=== PATIENT | female | born 1960 | race Caucasian/White ===

== ENCOUNTER 2024-01-30 22:56 | Emergency (ER) | payer BC ==
[~2024-01-30] VITALS: Ht 162.6 cm; Wt 83.6 kg
[2024-01-30 23:26] VITALS: BP 135/72; PULSE 88; TEMP 98.3
== END 2024-01-31 00:08 | disposition home or self-care (01) ==
LOC: COL.ER 22:56
DX: S00.411A Abrasion of right ear, initial encounter (principal); X58.XXXA Exposure to other specified factors, initial encounter

== ENCOUNTER 2024-06-25 12:41 | Inpatient (IN) | payer BC ==
[2024-06-25] VITALS (7 sets, daily range): BP systolic 103–136; BP diastolic 68–72; PULSE 86–120; TEMP 98.5–102.9
[~2024-06-25] VITALS: Ht 162.6 cm; Wt 84.3 kg
[2024-06-25] MEDS ORDERED: Ondansetron 4 MG/2 ML VIAL IV PRN (15:15)
[2024-06-25] MEDS ORDERED: Polyethylene Glycol 3350 17 GM PDS PO PRN (15:15)
[2024-06-25] MEDS ORDERED: Docusate Sodium 100 MG CAP PO PRN (15:15)
[2024-06-25] MEDS ORDERED: LR 1,000 ML IV SCH (15:15)
[2024-06-25] MEDS ORDERED: Acetaminophen 325 MG TAB PO PRN (15:15)
--- NOTE | 2024-06-25 16:48 | NUR ---
PATIENT ARRIVED TO FLOOR AT 1420 FROM [facility]. PATIENT ARRIVED W/ FEVER OF 102.9 CONTACTED PROVIDER AND RECEIVED ORDERS FOR TYLENOL. RECHECK OF TEMP. AT 1600 WAS 100.4. PATIENT STATES PAIN IN CENTER OF ABD, PAIN MEDS GIVEN ORDERED. PATIENT ADMISSION, INTAKE AND MED REC COMPLETED. PATIENT IS RESTING IN BED. CALL LIGHT IN REACH
[2024-06-25] MEDS ORDERED: PRILOSEC10 MG PO (16:54)
--- NOTE | 2024-06-25 19:36 | NUR ---
PT REPORTS ABD PAIN 10/10, NORCO GIVEN AT THIS TIME, 1 TAB PO. PT HAS IVF INFUSING TO LT HAND WITHOUT REDNESS OR SWELLING. HAS WEINSTEIN TO BSD WITH CLOUDY YELLOW URINE. SPOUSE AT BEDSIDE. PT IS ALERT AND ORIENTED X4.
--- NOTE | 2024-06-25 23:36 | NUR ---
PT HAVING 8/10 PAIN TO ABD. NORCO 1 TAB GIVEN NOW.
[2024-06-26] VITALS (10 sets, daily range): BP systolic 96–136; BP diastolic 56–63; PULSE 80–96; TEMP 98–99.1
--- NOTE | 2024-06-26 00:33 | NUR ---
REPEATED NORCO FOR PAIN TO ABD. NPO FOR POSSIBLE DRAIN PLACEMENT IN AM.
--- NOTE | 2024-06-26 05:45 | NUR ---
PT TAKES SCHEDULED AM MED WITH SIP OF WATER. DENIES NEED FOR PAIN MED AT THIS TIME.
[2024-06-26 06:30] LABS: BASO # 0.1 K/mm3 (0.0-0.2); BASO % 0.3 % (0.0-2.0); EOS # 0.1 K/mm3 (0.0-0.7); EOS % 0.3 % (0.0-4.0); GRAN # 15.1 K/mm3 (1.4-6.5); GRAN % 85.4 % (42.2-75.2); HEMOGLOBIN 11.1 g/dl (12.5-16.0); LYMPH # 1.2 K/mm3 (1.2-3.4); LYMPH % 6.7 % (20.0-51.0); MEAN CELL VOLUME 87 fl (80.0-100.0); MEAN CORPUSCULAR HEMOGLOBIN 29 pg (27-31); MEAN CORPUSCULAR HGB CONC 34 g/dl (33.0-37.0); MEAN PLATELET VOLUME 9.6 fl (7.4-10.4); MONO # 1.2 K/mm3 (0.1-0.6); MONO % 6.7 % (1.7-9.3); PLATELET COUNT 346 K/mm3 (130-400); RED BLOOD COUNT 3.78 M/mm3 (4.10-5.30)
[2024-06-26 06:33] LABS: HEMATOCRIT 32.7 % (37.0-47.0)
[2024-06-26 06:40] LABS: CALCIUM 8.8 mg/dL (8.4-10.2); CREATININE, serum 0.69 mg/dL (0.57-1.11); POTASSIUM 3.8 mEq/L (3.5-4.5)
--- NOTE | 2024-06-26 07:05 | NUR ---
medicated with [place] 5/325mg for abd pain
--- NOTE | 2024-06-26 08:00 | NUR ---
PATIENT IS A&O. VSS. REPORTS PAIN 3/10 AFTER GETTING PAIN MEDS FROM PEER COUNSELOR DURING SHIFT REPORT. ABD IS ROUND, SOFT AND WITH SOME BOWL SOUNDS. PATIENT REPORTS PASSING SOME GAS. NPO FOR POSSIBLE ABSCESS DRAIN PLACEMENT TODAY. CONSENT OBTAINED AND ON CHART. IV FLUIDS INFUSING VIA PUMP INTO LEFT HAND. WEINSTEIN TO DD. HEAD TO TOE ASSESSMENT COMPLETE. NO OTHER NEEDS AT THIS TIME. CALL LIGHT IN REACH.
[2024-06-26] MEDS ORDERED: Iohexol 300 - 100 ML VIAL IV ONE (09:27)
[2024-06-26] MEDS ORDERED: Polyethylene Glycol 3350 17 GM PDS PO SCH (10:36)
[2024-06-26] MEDS ORDERED: Docusate Sodium 100 MG CAP PO SCH (10:36)
--- NOTE | 2024-06-26 13:50 | NUR ---
concession worker met with pt to discuss intake information. She reports to live with her , Chuck [phone] in [place]. She sees Dr. Bsailio for PCP needs and obtains medications from [email or web address] with no difficulties. She is independent with ADLS and uses no DME. She does not have a DPOA-HC. PT/OT informed SW they signed off on pt. Discharge Plan: home
--- NOTE | 2024-06-26 14:20 | NUR ---
D: Prop Attendant stopped by room on rounds. A: Pt was resting and content. Pt has no needs right now. Pt appreciated the visit. P: Prop Attendant informed pt that if she needed anything from the business analysis specialist area to let her nurse know. Prop Attendant will follow up as needed.
--- NOTE | 2024-06-26 20:40 | NUR ---
PT A&O X4 LAYING IN BED. VSS. PT RATING ABD & BACK PAIN 06/21, GAVE PRN NORCO PER JAN. WEINSTEIN TO DD WITH YELLOW OUTPUT. LR AT 100ML/HR INFUSING TO LEFT HAND. PT DENYING FURTHER NEEDS. CALL LIGHT IN REACH
[2024-06-27] VITALS (13 sets, daily range): BP systolic 92–113; BP diastolic 52–70; PULSE 80–92; TEMP 97.5–99.7
--- NOTE | 2024-06-27 06:09 | NUR ---
PT RESTING IN BED WITH UNLABORED RESP. PAIN CONTROLLED THROUGHOUT THE NIGHT WITH PRN NORCO PER JAN. PT DENYING OTHER NEEDS. CALL LIGHT IN REACH
[2024-06-27 06:46] LABS: BASO % 0.4 % (0.0-2.0); EOS # 0.1 K/mm3 (0.0-0.7); EOS % 1.1 % (0.0-4.0); GRAN # 9.2 K/mm3 (1.4-6.5); GRAN % 81.1 % (42.2-75.2); HEMOGLOBIN 10.7 g/dl (12.5-16.0); LYMPH % 9.1 % (20.0-51.0); MEAN CELL VOLUME 88 fl (80.0-100.0); MEAN CORPUSCULAR HEMOGLOBIN 30 pg (27-31); MEAN CORPUSCULAR HGB CONC 34 g/dl (33.0-37.0); MEAN PLATELET VOLUME 10.1 fl (7.4-10.4); MONO # 0.9 K/mm3 (0.1-0.6); MONO % 7.8 % (1.7-9.3); PLATELET COUNT 265 K/mm3 (130-400); RED BLOOD COUNT 3.61 M/mm3 (4.10-5.30); REDCELL DISTRIBUTION WIDTH-CV 11.9 % (11.5-14.5)
[2024-06-27 06:48] LABS: HEMATOCRIT 31.9 % (37.0-47.0)
[2024-06-27 06:54] LABS: CALCIUM 8.5 mg/dL (8.4-10.2); CREATININE, serum 0.64 mg/dL (0.57-1.11); POTASSIUM 3.5 mEq/L (3.5-4.5)
--- NOTE | 2024-06-27 10:54 | NUR ---
SHIFT ASSESSMENT COMPLETE. PATIENT AWAKE IN BED EATING BREAKFAST. PATIENT TOLERATING FULL LIQUIDS THIS AM. REPORTS PAIN 9/10 DURNING ASSESSMENT PAIN MEDS GIVEN AND PATIENT RECHECKED AN HOUR LATER STATING PAIN THEN AT 2/10. ALL MORNING MEDS GIVEN ORDERED. PATIENT HAS NO OTHER REQUEST AT THIS TIME. CALL LIGHT IN REACH
[2024-06-27] MEDS ORDERED: LR 1,000 ML IV SCH (11:30)
--- NOTE | 2024-06-27 20:45 | NUR ---
PT A&O X4 LAYING IN BED. VSS. REPORTING PAIN 07/22 TO BACK & 3/10 TO ABD, TO EARLY FOR PRN NORCO, GAVE PRN TYLENOL PER MAR. DENYING N/V. WEINSTEIN TO DD WITH CLEAR YELLOW OUTPUT. LR AT 100MLS/HR INFUSING TO LEFT HAND. PT DENYING FURTHER NEEDS. CALL LIGHT IN REACH
--- NOTE | 2024-06-27 21:55 | NUR ---
PT REQUESTING PRN PAIN MED FOR BACK PAIN 06/21, GAVE PRN NORCO PER JAN. PT REPORTS SHE WOULD NORMALLY USE A HEAT PACK FOR PAIN BUT SHE DOESNT HAVE ONE HERE, OFFERED PT A WARM BLANKET & SHE DENIED. CALL LIGHT IN REACH
[2024-06-28] VITALS (11 sets, daily range): BP systolic 109–131; BP diastolic 72–81; PULSE 76–94; TEMP 97.7–99.4
[2024-06-28 07:18] LABS: BASO % 0.4 % (0.0-2.0); EOS # 0.2 K/mm3 (0.0-0.7); EOS % 2.3 % (0.0-4.0); GRAN # 7.9 K/mm3 (1.4-6.5); GRAN % 79.3 % (42.2-75.2); HEMOGLOBIN 10.3 g/dl (12.5-16.0); LYMPH % 9.8 % (20.0-51.0); MEAN CELL VOLUME 86 fl (80.0-100.0); MEAN CORPUSCULAR HEMOGLOBIN 29 pg (27-31); MEAN CORPUSCULAR HGB CONC 34 g/dl (33.0-37.0); MEAN PLATELET VOLUME 9.1 fl (7.4-10.4); MONO # 0.8 K/mm3 (0.1-0.6); MONO % 7.7 % (1.7-9.3); PLATELET COUNT 325 K/mm3 (130-400); RED BLOOD COUNT 3.52 M/mm3 (4.10-5.30); REDCELL DISTRIBUTION WIDTH-CV 11.8 % (11.5-14.5)
[2024-06-28 07:21] LABS: HEMATOCRIT 30.3 % (37.0-47.0)
--- NOTE | 2024-06-28 07:27 | NUR ---
SHIFT ASSESSMENT COMPLETE. VSS. PATIENT AWAKE IN BED TALKING W/DAUGHTER ON THE PHONE. PATIENT COMPLAINING OF PAIN 10/10 PAIN MEDS GIVEN ORDERED. ALL MORNING MEDS GIVEN ORDERED. WEINSTEIN IN PLACE CLEAR YELLOW URINE DRAINING. PATIENT HAS NO OTHER REQUEST AT THIS TIME. CALL LIGHT IN PLACE.
[2024-06-28 07:31] LABS: CALCIUM 8.5 mg/dL (8.4-10.2); CREATININE, serum 0.63 mg/dL (0.57-1.11); POTASSIUM 3.3 mEq/L (3.5-4.5)
--- NOTE | 2024-06-28 11:29 | NUR ---
WEINSTEIN CATHETER REMOVED 9CC REMOVED FROM BALLOON AND 800ML OUT OF URINE. PATIENT TOLERATGED WELL. PATIENT ALSO URINATED RIGHT AFTER.
--- NOTE | 2024-06-28 20:00 | NUR ---
PT A&O X4 LAYING IN BED. DENIES N/V. REPORTS PAIN 08/21 TO BACK AND ABD, GAVE PRN NORCO PER MAR. PT NOW UP AMBULATING HALLS INDEPENDENTLY WITH . DENYING FURTHER NEEDS.
--- NOTE | 2024-06-28 21:15 | NUR ---
PT RESTING IN BED. REPORTS PAIN IMPROVEMENT FROM PRN NORCO GIVEN EARLIER. IV ABX INFUSING TO LEFT HAND VIA PUMP. PT DENYING OTHER NEEDS. CALL LIGHT IN REACH
[2024-06-29] VITALS (13 sets, daily range): BP systolic 109–137; BP diastolic 63–84; PULSE 75–89; TEMP 98.1–99.8
--- NOTE | 2024-06-29 06:14 | NUR ---
PT RESTING IN BED WITH UNLABORED RESP. PAIN CONTROLLED THROUGHOUT NIGHT WITH PRN NORCO PER JAN. PT DENYING NEEDS AT THIS TIME. CALL LIGHT IN REACH
--- NOTE | 2024-06-29 08:06 | NUR ---
PT RESTING IN BED. ORDERED BREAKFAST. AM MEDS GIVEN ORDERED. PRN PO PAIN MEDS FOR PAIN CONTROLL. PT CURRENTLY RATING PAIN AT 8/10. PT INDEPENDENT IN ROOM AND HALLS.
--- NOTE | 2024-06-29 20:26 | NUR ---
SHIFT ASSESSMENT COMPLETE. VSS. PATIENT AWAKE WATCHING TV, TEARFUL DUE TO PAIN 10/10. PAIN MEDS GIVEN ALONG WITH NIGHT MEDS ORDERED. PATIENT STATES NO OTHER NEEDS AT THIS TIME. CALL LIGHT IN REACH
[2024-06-30] VITALS (7 sets, daily range): BP systolic 107–123; BP diastolic 65–76; PULSE 79–83; TEMP 98–98.2
--- NOTE | 2024-06-30 08:28 | NUR ---
PLAN ON DISCHARGE LATER TODAY. PT DOING WELL. PAIN CONTROLLED WITH PO MEDS Q4HR. AMBULATION ENCOURAGED. PT EATING AND DRINKING NO NAUSEA OR VOMITING.
[2024-06-30] MEDS ORDERED: FLAGYL500 MG PO (10:58)
[2024-06-30] MEDS ORDERED: AMOXICILLIN 8751 TAB PO (10:58)
[2024-06-30] MEDS ORDERED: MIRALAX119G PO (11:01)
[2024-06-30] MEDS ORDERED: ZOFRAN 4MG T4 MG/TAB PO (11:01)
[2024-06-30] MEDS ORDERED: TYLENOL 500MG500 MG PO (11:02)
[2024-06-30] MEDS ORDERED: ROXICODONE 55 MG/TAB PO (11:03)
--- NOTE | 2024-06-30 12:32 | NUR ---
DISCHARGE INSTRUCTIONS REVIEWED WITH PT AND . QUESTIONS ANSWERED, PT LEFT UNIT AMBULATORY TO POV.
== END 2024-06-30 12:15 | disposition home or self-care (01) | DRG 392 ==
LOC: SURG 12:41
PROVIDERS: ADMIT Internal Medicine
DX: K57.20 Diverticulitis of large intestine with perforation and abscess without bleeding (principal); E87.20 Acidosis, unspecified; N39.0 Urinary tract infection, site not specified; E87.1 Hypo-osmolality and hyponatremia; K21.9 Gastro-esophageal reflux disease without esophagitis; N83.202 Unspecified ovarian cyst, left side; E87.6 Hypokalemia; D64.9 Anemia, unspecified; D72.829 Elevated white blood cell count, unspecified; B96.20 Unspecified Escherichia coli [E. coli] as the cause of diseases classified elsewhere; Z90.49 Acquired absence of other specified parts of digestive tract; Z98.51 Tubal ligation status; Z87.891 Personal history of nicotine dependence
CPT/HCPCS: A9284; J2543; J7120; Q9967